=== PATIENT | female | born 1935 | race Caucasian/White ===

== ENCOUNTER → 2018-02-10 | Outpatient (CLI) | payer MEDICARE ==
[~2018-02-10] MED LIST: CARV-39 PO; CELE200C PO; CEPH-376 PO; CHOL200024 PO; DABI150C PO; DOXA4TAB3 PO; EZET10TA18 PO; LOSA100T7 PO; METF500T27 PO; OXYC20TA42 PO; ROSU5TAB PO; SPIR25TA5 PO
[2018-02-10 14:15] LABS: BASOPHILS # (AUTO) 0.04 x10^3/uL (0-0.1); BASOPHILS % (AUTO) 1 % (0-1); EOSINOPHILS # (AUTO) 0.11 x10^3/uL (0-0.4); EOSINOPHILS % (AUTO) 1 % (1-7); LYMPHOCYTES # (AUTO) 2.01 x10^3/uL (1-3.4); LYMPHOCYTES % (AUTO) 26 % (22-44); MD NO; MEAN CORPUSCULAR HEMOGLOBIN 31.2 pg (27.0-34.8); MEAN CORPUSCULAR HGB CONC 32.8 g/dL (32.4-35.8); MEAN CORPUSCULAR VOLUME 95.1 fL (80-100); MEAN PLATELET VOLUME 8.2 fL (7.4-10.4); MONOCYTES # (AUTO) 0.63 x10^3/uL (0.2-0.8); MONOCYTES % (AUTO) 8 % (2-9); NEUTROPHILS # (AUTO) 5.06 x10^3/uL (1.8-6.8); NEUTROPHILS % (AUTO) 65 % (42-75); PLATELET COUNT 243 x10^3/uL (130-400); RED BLOOD COUNT 4.54 x10^6/uL (3.82-5.3); RED CELL DISTRIBUTION WIDTH 14.4 % (9.6-15.2)
[2018-02-10 14:21] LABS: ALANINE AMINOTRANSFERASE 25 U/L (12-78); ALBUMIN 3.4 g/dL (3.4-5.0); ANION GAP 9 mmol/L (5-15); CALCIUM 9.4 mg/dL (8.5-10.1); CHLORIDE 107 mmol/L (98-107); CREATININE 1.24 mg/dL (0.55-1.02)
[2018-02-10 14:24] LABS: ALKALINE PHOSPHATASE 56 U/L (45-117); BILIRUBIN,TOTAL 0.3 mg/dL (0.2-1.0); TOTAL PROTEIN 7.8 g/dL (6.4-8.2)
[2018-02-10 14:50] LABS: MICROSCOPIC AUTO
[2018-02-10 14:55] LABS: CULTURE INDICATED? YES
== END | disposition home or self-care (01) ==
LOC: STAR 12:39
PROVIDERS: ATTEND Orthopaedic Surgery
DX: Z01.818 Encounter for other preprocedural examination (principal); M16.11 Unilateral primary osteoarthritis, right hip
CPT/HCPCS: 36415; 80053; 81001; 85025; 87077; 87081; 87086; 87186; 93005

== ENCOUNTER 2018-02-18 07:30 | Inpatient (IN) | payer MEDICARE ==
[~2018-02-18] VITALS: Ht 152.4 cm; Wt 112.8 kg
[~2018-02-18 07:30] MED LIST changes: -CELE200C PO; -CEPH-376 PO; +LIDOCAINE-MPF 2% ,5ML ONE; -OXYC20TA42 PO; +PHENYLEPHRINE 10 MG/ML ONE
[2018-02-18] MEDS ORDERED: ACETAMINOPHEN 1,000 MG/100 ML IV IVPB STA (08:18)
[2018-02-18] MEDS ORDERED: FENTANYL PF 250 MCG/5ML ONE (08:21)
[2018-02-18] MEDS ORDERED: CELE200C PO (08:28)
[2018-02-18] MEDS ORDERED: OXYC20TA42 PO (08:28)
[2018-02-18] MEDS ORDERED: GABAPENTIN 300 MG CAPSULE PO ONE (08:30)
[2018-02-18] MEDS ORDERED: ONDANSETRON ODT 8 MG PO ONE (08:30)
[2018-02-18] MEDS: LACTATED RINGERS 1,000 ML IV SCH ×2 (08:36→08:48)
[2018-02-18] MEDS ORDERED: CEPH-376 PO (08:46)
[2018-02-18] MEDS ORDERED: ACETAMINOPHEN 500 MG TABLET ONE (08:56)
[2018-02-18] MEDS ORDERED: KETOROLAC 60 MG/2 ML ONE (08:58)
[2018-02-18] MEDS ORDERED: NEOSPORIN OINT, 15GM ONE (08:59)
[2018-02-18] MEDS ORDERED: TRANEXAMIC ACID 100 MG/ML, 10ML ONE (08:59)
[2018-02-18] MEDS ORDERED: ROPIvacaine/PF 0.2%, 20 ML ONE ×2 (08:59→09:42)
[2018-02-18] MEDS ORDERED: MORPHINE SULFATE 4 MG/ML, 1ML ONE (09:00)
[2018-02-18] MEDS ORDERED: VANCOMYCIN 1,000 MG ONE (09:00)
[2018-02-18] MEDS ORDERED: EPINEPHRINE 1 MG/ML, 1ML ONE (09:00)
[2018-02-18] MEDS ORDERED: ACETAMINOPHEN 500 MG TABLET PO ONE (09:00)
[2018-02-18] MEDS ORDERED: SODIUM CHLORIDE 0.9% 100 ML ONE (09:03)
[2018-02-18] MEDS ORDERED: ALBUTEROL/IPRATROPIUM 2.5MG/0.5MG, 3 ML NPPB PRN (10:30)
[2018-02-18] MEDS ORDERED: OXYcodone 5 MG/5 ML ORAL.SOL UDC PO PRN (10:30)
[2018-02-18] MEDS ORDERED: MIDAZOLAM 1 MG/ML, 2ML IV PRN (10:30)
[2018-02-18] MEDS ORDERED: PROMETHAZINE 25 MG SUPP PR PRN (10:30)
[2018-02-18] MEDS ORDERED: ONDANSETRON 2MG/ML, 2ML IV PRN (10:30)
[2018-02-18] MEDS ORDERED: LABETALOL 5MG/ML, 20ML IV PRN (10:30)
[2018-02-18] MEDS ORDERED: SCOPOLAMINE PATCH, 1.5MG PATCH.TD72 TD PRN (10:30)
[2018-02-18] MEDS ORDERED: MEPERIDINE/PF 25MG/0.5ML IVPush PRN (10:30)
[2018-02-18] MEDS ORDERED: DEXAMETHASONE 4 MG/ML, 1ML ONE (10:36)
[2018-02-18] MEDS ORDERED: GLYCOPYRROLATE 0.2MG/1ML, 5ML ONE (10:36)
[2018-02-18] MEDS ORDERED: NEOSTIGMINE 1 MG/ML, 10ML ONE (10:36)
[2018-02-18] MEDS ORDERED: ROCURONIUM 10MG/ML,5ML ONE (10:36)
[2018-02-18] MEDS ORDERED: ONDANSETRON 2MG/ML, 2ML ONE (10:36)
[2018-02-18] MEDS ORDERED: SUCCINYLCHOLINE 20 MG/ML, 10ML ONE (10:36)
[2018-02-18] MEDS ORDERED: CEFAZOLIN 1,000 MG ONE (10:36)
[2018-02-18] MEDS ORDERED: PROPOFOL 10 MG/ML, 20ML ONE (10:36)
[2018-02-18] MEDS: FENTANYL PF 100 MCG/2ML IV PRN ×2 (10:43→11:02)
[2018-02-18] MEDS ORDERED: HYDROmorphone 2 MG/ML, 1ML ONE (10:46)
[2018-02-18] MEDS ORDERED: MIDAZOLAM 1 MG/ML, 2ML ONE (10:46)
[2018-02-18] MEDS ORDERED: FENTANYL PF 100 MCG/2ML ONE (10:46)
[2018-02-18] MEDS: HYDROmorphone 1 MG/ML, 1ML IV PRN ×2 (10:52→11:02)
[2018-02-18] MEDS ORDERED: HYDROcodone/APAP 7.5-325MG/15ML UDC ONE (10:58)
[2018-02-18] MEDS ORDERED: HYDROcodone/APAP 7.5-325MG/15ML UDC PO ONE (11:00)
[2018-02-18] MEDS ORDERED: NALOXONE 0.4 MG/ML, 1ML ONE (11:13)
[2018-02-18] MEDS ORDERED: NALOXONE 0.4 MG/ML, 1ML IVPush ONE (12:00)
[2018-02-18] MEDS ORDERED: HYDROcodone/APAP 5/325 TABLET PO PRN (14:00)
[2018-02-18] MEDS ORDERED: ALUMINUM/MAG/SIMETHICONE 30 ML UDC PO PRN (14:00)
[2018-02-18] MEDS ORDERED: ONDANSETRON 2MG/ML, 2ML IVPush PRN (14:00)
[2018-02-18] MEDS: POTASSIUM CHLORIDE 10 MEQ in D5%-0.45% NACL 1,000 ML IV SCH (16:06)
[2018-02-18] MEDS: CEFAZOLIN PMX 1GM/50ML 50 ML IVPB SCH (18:13)
[2018-02-18 19:19] VITALS: BP 105/60
[2018-02-18 22:26] VITALS: BP 120/79
[2018-02-18] MEDS: DOXAZOSIN 2MG TABLET PO SCH (22:33)
[2018-02-18] MEDS: EZETIMIBE 10 MG TABLET PO SCH (22:33)
[2018-02-18] MEDS: PREGABALIN 75 MG CAPSULE PO SCH (22:33)
[2018-02-18] MEDS: DOCUSATE 100 MG CAPSULE PO SCH (22:33)
[2018-02-18 23:36] VITALS: BP 93/58
[2018-02-19 04:29] VITALS: BP 101/76
[2018-02-19] MEDS: CEFAZOLIN PMX 1GM/50ML 50 ML IVPB SCH (04:57)
[2018-02-19 07:05] VITALS: BP 115/72
[2018-02-19] MEDS: metFORMIN XR 500 MG TAB.ER.24H PO SCH (07:41)
[2018-02-19 09:00] VITALS: BP 106/67
[2018-02-19] MEDS: LOSARTAN 50MG TABLET PO SCH (09:00)
[2018-02-19] MEDS: CARVEDILOL 25 MG TABLET PO SCH (09:00)
[2018-02-19] MEDS: CEPHALEXIN 500 MG CAPSULE PO SCH ×2 (09:09→20:01)
[2018-02-19] MEDS: DOCUSATE 100 MG CAPSULE PO SCH ×2 (09:09→20:01)
[2018-02-19] MEDS: DABIGATRAN 150 MG CAPSULE PO SCH ×2 (09:10→20:01)
[2018-02-19] MEDS: PREGABALIN 75 MG CAPSULE PO SCH ×2 (09:10→20:01)
[2018-02-19] MEDS: SPIRONOLACTONE 25 MG TABLET PO SCH (09:10)
[2018-02-19] MEDS: CHOLECALCIFEROL 1,000 UNIT TABLET PO SCH (09:11)
[2018-02-19] MEDS: POTASSIUM CHLORIDE 10 MEQ in D5%-0.45% NACL 1,000 ML IV SCH (12:26)
[2018-02-19 12:49] VITALS: BP 115/54
[2018-02-19] MEDS: KETOROLAC 30 MG/1 ML IV SCH ×2 (14:01→22:28)
[2018-02-19] MEDS: DOXAZOSIN 2MG TABLET PO SCH ×2 (18:00→18:23)
[2018-02-19] MEDS: EZETIMIBE 10 MG TABLET PO SCH (18:26)
[2018-02-19 19:46] VITALS: BP 111/68
[2018-02-19] MEDS: ATORVASTATIN 20 MG TABLET PO SCH (20:01)
[2018-02-19] MEDS: ACETAMINOPHEN 325 MG TABLET PO PRN (22:28)
[2018-02-20 01:18] VITALS: BP 91/61
[2018-02-20] MEDS: POTASSIUM CHLORIDE 10 MEQ in D5%-0.45% NACL 1,000 ML IV SCH (06:12)
[2018-02-20 07:11] VITALS: BP 120/78
[2018-02-20] MEDS: KETOROLAC 30 MG/1 ML IV SCH (07:39)
[2018-02-20] MEDS: metFORMIN XR 500 MG TAB.ER.24H PO SCH (08:04)
[2018-02-20] MEDS: CARVEDILOL 25 MG TABLET PO SCH (09:13)
[2018-02-20] MEDS: SPIRONOLACTONE 25 MG TABLET PO SCH (09:13)
[2018-02-20] MEDS: DOCUSATE 100 MG CAPSULE PO SCH ×2 (09:17→19:50)
[2018-02-20] MEDS: LOSARTAN 50MG TABLET PO SCH (09:18)
[2018-02-20] MEDS: CEPHALEXIN 500 MG CAPSULE PO SCH ×2 (09:20→19:51)
[2018-02-20] MEDS: PREGABALIN 75 MG CAPSULE PO SCH ×2 (09:21→19:50)
[2018-02-20] MEDS: DABIGATRAN 150 MG CAPSULE PO SCH ×2 (09:22→19:51)
[2018-02-20] MEDS: CHOLECALCIFEROL 1,000 UNIT TABLET PO SCH (09:23)
[2018-02-20] MEDS ORDERED: BISACODYL 10 MG SUPP ONE (12:47)
[2018-02-20 13:00] VITALS: BP 123/74
[2018-02-20] MEDS ORDERED: BISACODYL 10 MG SUPP PR PRN (13:00)
[2018-02-20] MEDS ORDERED: POLYETHYLENE GLYCOL 17 GM PACKET PO PRN (13:00)
[2018-02-20] MEDS: DOXAZOSIN 2MG TABLET PO SCH (18:00)
[2018-02-20 18:31] VITALS: BP 109/78
[2018-02-20] MEDS: EZETIMIBE 10 MG TABLET PO SCH (18:31)
[2018-02-20] MEDS: ACETAMINOPHEN 325 MG TABLET PO PRN (19:51)
[2018-02-21 00:13] VITALS: BP 95/60
[2018-02-21] MEDS: ONDANSETRON ODT 4 MG PO PRN (00:42)
[2018-02-21] MEDS: POTASSIUM CHLORIDE 10 MEQ in D5%-0.45% NACL 1,000 ML IV SCH ×2 (02:18→10:49)
[2018-02-21] MEDS ORDERED: SODIUM CHLORIDE 0.9% 1,000 ML IVBOLUS PRN (05:55)
[2018-02-21 07:15] VITALS: BP 69/47
[2018-02-21 08:20] VITALS: BP 90/60
[2018-02-21] MEDS: SPIRONOLACTONE 25 MG TABLET PO SCH (08:48)
[2018-02-21] MEDS: LOSARTAN 50MG TABLET PO SCH (08:51)
[2018-02-21] MEDS: DOCUSATE 100 MG CAPSULE PO SCH (09:00)
[2018-02-21] MEDS: DABIGATRAN 150 MG CAPSULE PO SCH (09:00)
[2018-02-21] MEDS: metFORMIN XR 500 MG TAB.ER.24H PO SCH (10:11)
[2018-02-21] MEDS: CHOLECALCIFEROL 1,000 UNIT TABLET PO SCH (10:11)
[2018-02-21] MEDS: PREGABALIN 75 MG CAPSULE PO SCH ×2 (10:11→21:37)
[2018-02-21] MEDS: CEPHALEXIN 500 MG CAPSULE PO SCH (10:11)
[2018-02-21 11:09] LABS: OCCULT BLOOD POSITIVE (NEGATIVE)
[2018-02-21 11:34] LABS: MEAN CORPUSCULAR HGB CONC 32.8 g/dL (32.4-35.8); MEAN CORPUSCULAR VOLUME 94.7 fL (80-100); MEAN PLATELET VOLUME 8.8 fL (7.4-10.4); PLATELET COUNT 168 x10^3/uL (130-400); RED BLOOD COUNT 3.72 x10^6/uL (3.82-5.3); RED CELL DISTRIBUTION WIDTH 14.1 % (9.6-15.2)
[2018-02-21 11:37] VITALS: BP 86/58
[2018-02-21 11:43] LABS: ALANINE AMINOTRANSFERASE 13 U/L (12-78); ALBUMIN 2.1 g/dL (3.4-5.0); ANION GAP 6 mmol/L (5-15); CALCIUM 7.7 mg/dL (8.5-10.1); CHLORIDE 108 mmol/L (98-107)
[2018-02-21 11:48] LABS: ALKALINE PHOSPHATASE 45 U/L (45-117); BILIRUBIN,TOTAL 0.4 mg/dL (0.2-1.0); CREATININE 1.84 mg/dL (0.55-1.02); TOTAL PROTEIN 5.6 g/dL (6.4-8.2); TROPONIN I < 0.015 ng/mL (0.000-0.045)
[2018-02-21 11:56] LABS: MD YES
[2018-02-21 11:58] LABS: <PLATELET ESTIMATE> ADEQUATE; <PLT MORPHOLOGY> NORMAL PLT MORPH; <RBC MORPHOLOGY> NORMAL; BAND#(MANUAL) 2.23 x10^3/uL; BANDS%(MANUAL) 25 % (0-7); LYMPH#(MANUAL) 0.89 x10^3/uL (1-3.4); LYMPHS% (MANUAL) 10 % (22-44); METAMYELOCYTES# (MANUAL) 0.18 x10^3/uL (0-0); METAMYELOCYTES% (MANUAL) 2 % (0-1); MONOS#(MANUAL) 0.62 x10^3/uL (0.3-2.7); MONOS% (MANUAL) 7 % (2-9); SEG#(MANUAL) 4.98 x10^3/uL (1.8-6.8); SEGS% (MANUAL) 56 % (42-75)
[2018-02-21] MEDS ORDERED: SODIUM CHLORIDE 0.9% 1,000 ML IV SCH (12:30)
[2018-02-21 13:02] VITALS: BP 83/51
[2018-02-21] MEDS: EZETIMIBE 10 MG TABLET PO SCH (18:00)
[2018-02-21 18:13] LABS: ANION GAP 6 mmol/L (5-15); CALCIUM 7.6 mg/dL (8.5-10.1); CHLORIDE 111 mmol/L (98-107); CREATININE 1.53 mg/dL (0.55-1.02)
[2018-02-21 18:59] LABS: MICROSCOPIC AUTO
[2018-02-21] MEDS ORDERED: VASOPRESSIN 100 UNIT in SODIUM CHLORIDE 0.9% 495 ML IV PRN (19:00)
[2018-02-21] MEDS ORDERED: NOREPINEPHRINE 4 MG in SODIUM CHLORIDE 0.9% 246 ML IV PRN (19:00)
[2018-02-21 19:06] LABS: CULTURE INDICATED? YES
[2018-02-21] MEDS: MEROPENEM 1 GM in SODIUM CHLORIDE 0.9% 100 ML IV SCH (20:22)
[2018-02-21] MEDS: ATORVASTATIN 20 MG TABLET PO SCH (21:37)
[2018-02-22] MEDS: ACETAMINOPHEN 325 MG TABLET PO PRN ×3 (00:07→20:57)
[2018-02-22] MEDS: MEROPENEM 1 GM in SODIUM CHLORIDE 0.9% 100 ML IV SCH ×3 (03:35→17:55)
[2018-02-22 05:50] LABS: CHLORIDE 115 mmol/L (98-107)
[2018-02-22 06:00] LABS: ALANINE AMINOTRANSFERASE 11 U/L (12-78); ALBUMIN 1.9 g/dL (3.4-5.0); ALKALINE PHOSPHATASE 41 U/L (45-117); ANION GAP 8 mmol/L (5-15); BILIRUBIN,TOTAL 0.4 mg/dL (0.2-1.0); CALCIUM 7.9 mg/dL (8.5-10.1); CREATININE 1.08 mg/dL (0.55-1.02); TOTAL PROTEIN 5.2 g/dL (6.4-8.2)
[2018-02-22 06:05] LABS: MEAN CORPUSCULAR HEMOGLOBIN 31.7 pg (27.0-34.8); MEAN CORPUSCULAR HGB CONC 33.2 g/dL (32.4-35.8); MEAN CORPUSCULAR VOLUME 95.5 fL (80-100); PLATELET COUNT 154 x10^3/uL (130-400); RED BLOOD COUNT 3.47 x10^6/uL (3.82-5.3); RED CELL DISTRIBUTION WIDTH 14.3 % (9.6-15.2)
[2018-02-22 06:24] LABS: MD YES
[2018-02-22 06:25] LABS: BAND#(MANUAL) 1.65 x10^3/uL; BANDS%(MANUAL) 22 % (0-7); EOS#(MANUAL) 0.08 x10^3/uL (0.0-0.4); EOS% (MANUAL) 1 % (1-7); LYMPH#(MANUAL) 1.95 x10^3/uL (1-3.4); LYMPHS% (MANUAL) 26 % (22-44); MONOS#(MANUAL) 0.53 x10^3/uL (0.3-2.7); MONOS% (MANUAL) 7 % (2-9); MYELOCYTES# (MANUAL) 0.08 x10^3/uL (0-0); MYELOCYTES% (MANUAL) 1 % (0-0); SEG#(MANUAL) 3.23 x10^3/uL (1.8-6.8); SEGS% (MANUAL) 43 % (42-75)
[2018-02-22 06:26] LABS: <PLATELET ESTIMATE> ADEQUATE; <PLT MORPHOLOGY> NORMAL PLT MORPH; <RBC MORPHOLOGY> NORMAL
[2018-02-22] MEDS: PREGABALIN 75 MG CAPSULE PO SCH ×2 (10:16→20:56)
[2018-02-22] MEDS: CHOLECALCIFEROL 1,000 UNIT TABLET PO SCH (10:16)
[2018-02-22] MEDS ORDERED: SODIUM PHOSPHATE 20 MMOL in SODIUM CHLORIDE 0.9% 500 ML IV ONE (11:30)
[2018-02-22] MEDS ORDERED: MAGNESIUM SULFATE PMX 2GM/50ML 50 ML IV ONE (11:30)
[2018-02-22] MEDS ORDERED: SODIUM CHLORIDE 0.9% 1,000 ML IV SCH ×2 (12:30)
[2018-02-22] MEDS: PANTOPRAZOLE 40 MG IV IVPush SCH (16:41)
[2018-02-22] MEDS: EZETIMIBE 10 MG TABLET PO SCH (17:55)
[2018-02-23 02:50] VITALS: BP 95/63
[2018-02-23] MEDS: MEROPENEM 1 GM in SODIUM CHLORIDE 0.9% 100 ML IV SCH ×2 (02:56→11:53)
[2018-02-23] MEDS: ACETAMINOPHEN 325 MG TABLET PO PRN (02:56)
[2018-02-23] MEDS: PANTOPRAZOLE 40 MG IV IVPush SCH ×2 (04:33→15:49)
[2018-02-23 06:05] LABS: BASOPHILS # (AUTO) 0.02 x10^3/uL (0-0.1); BASOPHILS % (AUTO) 0 % (0-1); EOSINOPHILS # (AUTO) 0.09 x10^3/uL (0-0.4); EOSINOPHILS % (AUTO) 1 % (1-7); LYMPHOCYTES # (AUTO) 1.28 x10^3/uL (1-3.4); LYMPHOCYTES % (AUTO) 17 % (22-44); MD NO; MEAN CORPUSCULAR HEMOGLOBIN 32.1 pg (27.0-34.8); MEAN CORPUSCULAR HGB CONC 33.5 g/dL (32.4-35.8); MEAN PLATELET VOLUME 8.7 fL (7.4-10.4); MONOCYTES # (AUTO) 0.92 x10^3/uL (0.2-0.8); MONOCYTES % (AUTO) 12 % (2-9); NEUTROPHILS # (AUTO) 5.36 x10^3/uL (1.8-6.8); NEUTROPHILS % (AUTO) 70 % (42-75); PLATELET COUNT 178 x10^3/uL (130-400); RED BLOOD COUNT 3.17 x10^6/uL (3.82-5.3); RED CELL DISTRIBUTION WIDTH 14.1 % (9.6-15.2)
[2018-02-23 06:14] LABS: ANION GAP 5 mmol/L (5-15); CALCIUM 7.9 mg/dL (8.5-10.1); CHLORIDE 113 mmol/L (98-107); CREATININE 0.88 mg/dL (0.55-1.02)
[2018-02-23] MEDS ORDERED: ERGOCALCIFEROL 50,000 UNIT CAPSULE PO SCH (07:30)
[2018-02-23] MEDS ORDERED: POTASSIUM PHOSPHATE 22 MEQ in SODIUM CHLORIDE 0.9% 500 ML IV ONE (07:30)
[2018-02-23 07:55] VITALS: BP 106/67
[2018-02-23] MEDS: CHOLECALCIFEROL 1,000 UNIT TABLET PO SCH (08:26)
[2018-02-23] MEDS: PREGABALIN 75 MG CAPSULE PO SCH ×2 (08:26→20:29)
[2018-02-23] MEDS: CYANOCOBALAMIN 1,000 MCG TABLET PO SCH (15:49)
[2018-02-23] MEDS: EZETIMIBE 10 MG TABLET PO SCH (18:36)
[2018-02-23] MEDS: CARVEDILOL 3.125 MG TABLET PO SCH (18:36)
[2018-02-23 19:53] VITALS: BP 128/84
[2018-02-23] MEDS: DABIGATRAN 150 MG CAPSULE PO SCH (20:29)
[2018-02-24 00:31] VITALS: BP 157/85
[2018-02-24 04:05] VITALS: BP 151/88
[2018-02-24] MEDS: PANTOPRAZOLE 40 MG IV IVPush SCH ×2 (04:29→16:08)
[2018-02-24] MEDS: CARVEDILOL 3.125 MG TABLET PO SCH ×2 (04:40→18:14)
[2018-02-24 06:11] LABS: BASOPHILS # (AUTO) 0.02 x10^3/uL (0-0.1); BASOPHILS % (AUTO) 0 % (0-1); EOSINOPHILS # (AUTO) 0.04 x10^3/uL (0-0.4); EOSINOPHILS % (AUTO) 1 % (1-7); LYMPHOCYTES # (AUTO) 1.46 x10^3/uL (1-3.4); LYMPHOCYTES % (AUTO) 19 % (22-44); MD NO; MEAN CORPUSCULAR HEMOGLOBIN 32.1 pg (27.0-34.8); MEAN CORPUSCULAR HGB CONC 33.7 g/dL (32.4-35.8); MEAN CORPUSCULAR VOLUME 95.3 fL (80-100); MEAN PLATELET VOLUME 8.6 fL (7.4-10.4); MONOCYTES # (AUTO) 0.77 x10^3/uL (0.2-0.8); MONOCYTES % (AUTO) 10 % (2-9); NEUTROPHILS # (AUTO) 5.39 x10^3/uL (1.8-6.8); NEUTROPHILS % (AUTO) 70 % (42-75); PLATELET COUNT 203 x10^3/uL (130-400); RED BLOOD COUNT 3.39 x10^6/uL (3.82-5.3); RED CELL DISTRIBUTION WIDTH 13.9 % (9.6-15.2)
[2018-02-24 06:23] LABS: ANION GAP 8 mmol/L (5-15); CALCIUM 8.5 mg/dL (8.5-10.1); CHLORIDE 111 mmol/L (98-107)
[2018-02-24 06:27] LABS: ALANINE AMINOTRANSFERASE 14 U/L (12-78); ALKALINE PHOSPHATASE 49 U/L (45-117); BILIRUBIN,TOTAL 0.4 mg/dL (0.2-1.0); CREATININE 0.71 mg/dL (0.55-1.02); TOTAL PROTEIN 5.6 g/dL (6.4-8.2)
[2018-02-24 06:38] VITALS: BP 118/81
[2018-02-24] MEDS: CHOLECALCIFEROL 1,000 UNIT TABLET PO SCH (08:37)
[2018-02-24] MEDS: PREGABALIN 75 MG CAPSULE PO SCH ×2 (08:37→21:32)
[2018-02-24] MEDS: CYANOCOBALAMIN 1,000 MCG TABLET PO SCH (08:37)
[2018-02-24] MEDS: DABIGATRAN 150 MG CAPSULE PO SCH (08:38)
[2018-02-24] MEDS ORDERED: SODIUM PHOSPHATE 20 MMOL in SODIUM CHLORIDE 0.9% 500 ML IV ONE (10:30)
[2018-02-24] MEDS ORDERED: MAGNESIUM SULFATE PMX 2GM/50ML 50 ML IV ONE (10:30)
[2018-02-24] MEDS ORDERED: SODIUM CHLORIDE 0.9% IV ONE (11:00)
[2018-02-24] MEDS ORDERED: POTASSIUM PHOSPHATE 22 MEQ in SODIUM CHLORIDE 0.9% 500 ML IV ONE (11:00)
[2018-02-24] MEDS ORDERED: POTASSIUM PHOSPHATE IV ONE (11:00)
[2018-02-24 12:14] VITALS: BP 131/77
[2018-02-24] MEDS: EZETIMIBE 10 MG TABLET PO SCH (18:14)
[2018-02-24 18:50] VITALS: BP 150/82
[2018-02-24] MEDS ORDERED: GOLYTELY 4,000ML ORAL.SOL PO ONE (20:00)
[2018-02-24] MEDS: ATORVASTATIN 20 MG TABLET PO SCH (21:32)
[2018-02-25] MEDS ORDERED: LABETALOL 5MG/ML, 20ML IVPush ONE
[2018-02-25] MEDS: ONDANSETRON ODT 4 MG PO PRN (00:24)
[2018-02-25 02:26] VITALS: BP 123/82
[2018-02-25] MEDS: PANTOPRAZOLE 40 MG IV IVPush SCH ×2 (04:24→18:04)
[2018-02-25] MEDS: CARVEDILOL 3.125 MG TABLET PO SCH ×2 (05:48→18:04)
[2018-02-25 07:08] VITALS: BP 117/74
[2018-02-25] MEDS: CYANOCOBALAMIN 1,000 MCG TABLET PO SCH (09:14)
[2018-02-25] MEDS: PREGABALIN 75 MG CAPSULE PO SCH ×2 (09:14→19:48)
[2018-02-25] MEDS: CHOLECALCIFEROL 1,000 UNIT TABLET PO SCH (09:14)
[2018-02-25] MEDS ORDERED: ERGOCALCIFEROL 50,000 UNIT CAPSULE PO SCH (10:00)
[2018-02-25 12:18] VITALS: BP 135/67
[2018-02-25] MEDS ORDERED: FENTANYL PF 100 MCG/2ML ONE (16:10)
[2018-02-25] MEDS ORDERED: MIDAZOLAM 1 MG/ML, 2ML ONE (16:10)
[2018-02-25] MEDS ORDERED: PROPOFOL 10 MG/ML, 20ML ONE (16:11)
[2018-02-25] MEDS ORDERED: MORPHINE SULFATE 4 MG/ML, 1ML IVPush PRN (17:00)
[2018-02-25] MEDS ORDERED: FENTANYL PF 100 MCG/2ML IV PRN (17:00)
[2018-02-25] MEDS ORDERED: MEPERIDINE/PF 25MG/0.5ML IVPush PRN (17:00)
[2018-02-25] MEDS ORDERED: ONDANSETRON 2MG/ML, 2ML IV PRN (17:00)
[2018-02-25] MEDS: EZETIMIBE 10 MG TABLET PO SCH (18:04)
[2018-02-25 18:07] LABS: CREATINE KINASE, TOTAL 108 U/L (26-192)
[2018-02-25 18:49] VITALS: BP 105/67
[2018-02-25 21:13] LABS: CLOSTRIDIUM DIFFICILE ANTIGEN NEGATIVE; CLOSTRIDIUM DIFFICILE TOXIN NEGATIVE (Negative)
[2018-02-26 01:54] VITALS: BP 123/81
[2018-02-26] MEDS: PANTOPRAZOLE 40 MG IV IVPush SCH ×2 (03:51→17:26)
[2018-02-26] MEDS: CARVEDILOL 3.125 MG TABLET PO SCH ×2 (06:20→17:26)
[2018-02-26 06:39] VITALS: BP 132/84
[2018-02-26 07:55] LABS: CRYPTOSPORIDIUM ANTIGEN Negative (Negative)
[2018-02-26] MEDS: CHOLECALCIFEROL 1,000 UNIT TABLET PO SCH (08:52)
[2018-02-26] MEDS: CYANOCOBALAMIN 1,000 MCG TABLET PO SCH (08:52)
[2018-02-26] MEDS: PREGABALIN 75 MG CAPSULE PO SCH (08:52)
[2018-02-26 12:06] VITALS: BP 122/85
[2018-02-26] MEDS ORDERED: ACET325T14 PO (15:33)
[2018-02-26] MEDS ORDERED: PREG75CA PO (15:33)
[2018-02-26] MEDS ORDERED: ATOR20TA9 PO (15:33)
[2018-02-26] MEDS ORDERED: EZET10TA18 PO (15:33)
[2018-02-26] MEDS ORDERED: PANT40TA3 PO (15:33)
[2018-02-26] MEDS ORDERED: ERGO500017 PO (15:33)
[2018-02-26] MEDS ORDERED: ONDA4TAB13 PO (15:33)
[2018-02-26] MEDS ORDERED: CYAN10005 PO (15:33)
[2018-02-26] MEDS ORDERED: POLY17PO5 PO (15:33)
[2018-02-26] MEDS ORDERED: TRAM50TA2 PO (15:33)
[2018-02-26] MEDS ORDERED: CARV3.1212 PO (15:33)
[2018-02-26] MEDS: EZETIMIBE 10 MG TABLET PO SCH (17:26)
== END 2018-02-26 18:03 | DRG 469 ==
LOC: ORIP 07:33 → 4NOR 13:04 → 4WST 02-21 14:39 → CCU 02-21 15:24 → 4EST 02-22 22:06
PROVIDERS: ADMIT Orthopaedic Surgery; ATTEND Orthopaedic Surgery
PROC: 0SR902A Replacement of Right Hip Joint with Metal on Polyethylene Synthetic Substitute, Uncemented, Open Approach (ICD-10-PCS; principal; 2018-02-18 09:30)
PROC: 0DBE8ZX Excision of Large Intestine, Via Natural or Artificial Opening Endoscopic, Diagnostic (ICD-10-PCS; 2018-02-25)
PROC: 0DJ08ZZ Inspection of Upper Intestinal Tract, Via Natural or Artificial Opening Endoscopic (ICD-10-PCS; 2018-02-25)
DX: M16.11 Unilateral primary osteoarthritis, right hip (principal); E43 Unspecified severe protein-calorie malnutrition; N17.0 Acute kidney failure with tubular necrosis; D62 Acute posthemorrhagic anemia; D68.69 Other thrombophilia; K92.1 Melena; Z68.42 Body mass index [BMI] 45.0-49.9, adult; D72.825 Bandemia; E11.65 Type 2 diabetes mellitus with hyperglycemia; E55.9 Vitamin D deficiency, unspecified; E66.9 Obesity, unspecified; E78.5 Hyperlipidemia, unspecified; I95.9 Hypotension, unspecified; G89.4 Chronic pain syndrome; E87.5 Hyperkalemia; I10 Essential (primary) hypertension; I48.91 Unspecified atrial fibrillation; J44.9 Chronic obstructive pulmonary disease, unspecified; K26.9 Duodenal ulcer, unspecified as acute or chronic, without hemorrhage or perforation; K57.30 Diverticulosis of large intestine without perforation or abscess without bleeding; K64.8 Other hemorrhoids; Z79.01 Long term (current) use of anticoagulants; Z79.02 Long term (current) use of antithrombotics/antiplatelets; Z95.0 Presence of cardiac pacemaker; Z79.899 Other long term (current) drug therapy
CPT/HCPCS: 36415; 70450; 71045; 80048; 80053; 81001; 82150; 82272; 82306; 82533; 82550; 82607; 82728; 82962; 83540; 83550; 83605; 83615; 83735; 83880; 84100; 84443; 84466; 84484; 85014; 85018; 85025; 86677; 86850; 86900; 87040; 87046; 87081; 87086; 87324; 87328; 87329; 87427; 88305; 93005; 93306; 93970; C1713; G0378; J0171; J0690; J1100; J1170; J1885; J2185; J2250; J2310; J2405; J2704; J2710; J2795; J3010; J3370; J3480; J3490; Q0162; C1776; C9113; J0330; J2370; J3475; J7030; J7040; J7120